=== PATIENT | male | born 1995 | race Hispanic/Latino ===

== ENCOUNTER 2018-09-02 20:45 | Emergency (ER) | payer SELFPAY ==
[2018-09-02] MEDS ORDERED: ONDANSETRON ODT 4 MG TAB ONE (21:34)
== END 2018-09-02 21:47 | disposition home or self-care (01) ==
LOC: EDH 20:45
DX: F41.8 Other specified anxiety disorders (principal)

== ENCOUNTER 2019-08-30 16:12 | Emergency (ER) | payer SELFPAY | END 2019-08-30 17:14 | disposition home or self-care (01) | LOC: EDH 16:12 | DX: G44.311 Acute post-traumatic headache, intractable (principal); R03.0 Elevated blood-pressure reading, without diagnosis of hypertension ==

== ENCOUNTER 2021-07-21 19:51 | Emergency (ER) | payer OTHER ==
[~2021-07-21] VITALS: Ht 167.6 cm; Wt 90.7 kg
[2021-07-21 20:06] VITALS: BP 155/74
[2021-07-21] MEDS ORDERED: CYCL10TA16 PO (23:14)
[2021-07-21] MEDS ORDERED: NAPR500T6 PO (23:14)
[2021-07-21] MEDS ORDERED: KETOROLAC 30MG VIAL (30MG/ML) IM ONE (23:30)
[2021-07-21] MEDS ORDERED: ORPHENADRINE CITRATE 30 MG/ML ML IM ONE (23:30)
== END 2021-07-21 23:56 | disposition home or self-care (01) ==
LOC: EDH 19:51
DX: S39.012A Strain of muscle, fascia and tendon of lower back, initial encounter (principal); Z79.1 Long term (current) use of non-steroidal anti-inflammatories (NSAID); X58.XXXA Exposure to other specified factors, initial encounter; Y93.89 Activity, other specified; Y92.89 Other specified places as the place of occurrence of the external cause; Y99.8 Other external cause status
CPT/HCPCS: 96372 ×2; 99284; J1885; J2360